=== PATIENT | male | born 1985 | race African-American/Black ===

== ENCOUNTER 2017-10-01 17:10 | Emergency (ER) | payer MEDICAID, OTHER ==
[~2017-10-01] VITALS: Ht 175.3 cm; Wt 136.1 kg
[2017-10-01 18:12] LABS: Basophils # (auto) 0 uL; Eosinophils # (auto) 0.1 uL; Lymphocytes # (auto) 0.4 uL; Monocytes # (auto) 0.6 uL
[2017-10-01 18:14] LABS: Basophils % (auto) 0.4 % (0.0-2.0); Eosinophils % (auto) 0.8 % (0.0-7.0); Hematocrit 36.1 % (41.0-53.0); Hemoglobin 11.6 g/dL (13.5-17.5); Lymphocytes % (auto) 5.3 % (10.0-50.0); Mean Corpuscular Hemoglobin 21.8 pg (28.0-32.0); Mean Corpuscular Hgb Conc. 32.2 g/dL (32.0-36.0); Mean Corpuscular Volume 67.7 fL (80.0-100.0); Monocytes % (auto) 7.6 % (0.0-12.0); Neutrophils # (auto) 6.7 uL; Neutrophils % (auto) 85.9 % (37.0-80.0); Nucleated Red Blood Cells % 0.3 %; Platelet Count (auto) 231 10^3/uL (140-450); Red Blood Cells 5.33 10^6/uL (4.5-5.90); White Blood Cell 7.8 10^3/uL (4.4-10.8)
[2017-10-01 18:33] LABS: Bilirubin, Total 0.4 mg/dL (0.2-1.0); Calcium 7.5 mg/dL (8.5-10.1); Potassium 3.4 mmol/L (3.5-5.1); Total Protein 6.3 g/dL (6.4-8.2)
[2017-10-01] MEDS ORDERED: LORazepam 2MG/ML-1ML VIAL ONE (20:08)
[2017-10-01] MEDS ORDERED: LEVETIRACETAM INJ 1,000 MG in D5W 5% 100 ML IV ONE (20:15)
[2017-10-01] MEDS ORDERED: LORazepam 2MG/ML-1ML VIAL IV ONE (20:15)
[2017-10-01] MEDS ORDERED: SODIUM CHLORIDE 0.9% 1,000 ML IV ONE (20:15)
[2017-10-01] MEDS ORDERED: LEVETIRACETAM INJ 1,000 MG in SODIUM CHL 0.9% 100 ML IV ONE (20:30)
[2017-10-01] MEDS ORDERED: HYDROcodone-ACET 5/325MG TAB PO ONE (21:30)
[2017-10-01 22:00] LABS: Alcohol, Urine < 3.0 mg/dL (0-5); Amphetamine Screen, Urine NEGATIVE (NEGATIVE); Barbiturate Scree,Urine NEGATIVE (NEGATIVE); Benzodiazephine Screen, Urine NEGATIVE (NEGATIVE); Cannabinoid Screen, Urine NEGATIVE (NEGATIVE); Cocaine Screen, Urine NEGATIVE (NEGATIVE); Opiate Scree,Urine NEGATIVE (NEGATIVE); Phencyclidine Screen, Urine NEGATIVE (NEGATIVE)
[2017-10-01] MEDS ORDERED: cloNIDine 0.2 mg/24hr 7DAY PATCH TD ONE (22:30)
[2017-10-01] MEDS ORDERED: cloNIDine HCL 0.1 MG TAB PO ONE (23:00)
[2017-10-02 00:03] VITALS: BP 184/127
[2017-10-02] MEDS ORDERED: LABETALOL HCL 200 MG TAB PO ONE (00:30)
[2017-10-02] MEDS ORDERED: LORazepam 0.5 MG TAB PO ONE (02:00)
== END 2017-10-02 02:10 | disposition home or self-care (01) ==
LOC: ER 17:10
DX: G40.909 Epilepsy, unspecified, not intractable, without status epilepticus (principal); E86.0 Dehydration; G89.29 Other chronic pain; M54.9 Dorsalgia, unspecified
CPT/HCPCS: 36415; 70450; 80053; 80307; 85025; 93005; 96365; 96375; 99285; J1953; J2060; J7030; J7060

== ENCOUNTER 2017-10-11 19:19 | Emergency (ER) | payer MEDICAID, OTHER ==
[~2017-10-11] VITALS: Ht 175.3 cm; Wt 117.9 kg
[2017-10-11 20:20] LABS: Mean Corpuscular Hemoglobin 21.4 pg (28.0-32.0); Red Blood Cells 5.07 10^6/uL (4.5-5.90)
[2017-10-11 20:22] LABS: Hematocrit 34.3 % (41.0-53.0); Hemoglobin 10.8 g/dL (13.5-17.5); Mean Corpuscular Hgb Conc. 31.6 g/dL (32.0-36.0); Mean Corpuscular Volume 67.6 fL (80.0-100.0); Platelet Count (auto) 601 10^3/uL (140-450); White Blood Cell 14.5 10^3/uL (4.4-10.8)
[2017-10-11 20:43] LABS: Band Neutrophils % (manual) 0; Basophils % (manual) 0 (0.0-2.0); Blast Cells 0; Eosinophils % (manual) 0 (0-7); Metamyelocytes % 0; Myelocytes % 0; Promyelocytes % 0; Reactive Lymphocytes 0
[2017-10-11 20:52] LABS: Albumin 3.1 g/dL (3.4-5.0); BUN/Creatinine Ratio 27.7; Bilirubin, Total 0.4 mg/dL (0.2-1.0); Calcium 8.3 mg/dL (8.5-10.1); Total Protein 7.4 g/dL (6.4-8.2)
[2017-10-11 21:04] LABS: Lymphocytes % (manual) 8 (10.0-50.0); Monocytes % (manual) 2 (0-12)
[2017-10-11 21:59] LABS: Potassium 5.6 mmol/L (3.5-5.1)
[2017-10-11] MEDS ORDERED: FUROSEMIDE 20 MG/2 ML VIAL IV ONE (23:15)
[2017-10-11] MEDS ORDERED: SODIUM POLYSTYRENE SULF 15GM/60ML SUSP PO ONE (23:30)
[2017-10-12 00:32] LABS: Partial Thromboplastin Time 24.5 sec (22.64-33.71); Prothrombin Time 10.9 sec (9.37-12.3)
[2017-10-12 02:26] VITALS: BP 134/54
== END 2017-10-12 03:26 | disposition home or self-care (01) ==
LOC: ER 19:19
DX: M32.14 Glomerular disease in systemic lupus erythematosus (principal); R60.9 Edema, unspecified; I50.9 Heart failure, unspecified; N18.6 End stage renal disease; E87.5 Hyperkalemia; M10.9 Gout, unspecified; Z88.8 Allergy status to other drugs, medicaments and biological substances
CPT/HCPCS: 36415; 71045; 80053; 83880; 84484; 85007; 85027; 85379; 85610; 85730; 93005; 96374; 99285; J1940

== ENCOUNTER 2019-01-14 23:36 | Emergency (ER) | payer MEDICAID ==
[~2019-01-14] VITALS: Ht 180.3 cm; Wt 122.5 kg
[~2019-01-14 23:36] MED LIST: ALL300T PO; CIPR-173 PO; DICL1GEL26 TD; FURO40TA4 PO; HYDR-4441 PO; HYDR50TA15 PO; LAB200T PO; LEVE500T22 PO; MYCO500T PO; PRE1T PO; TRAM50TA2 PO
[2019-01-15 01:01] LABS: Basophils # (auto) 0.1 uL; Eosinophils # (auto) 0 uL; Eosinophils % (auto) 0.3 % (0.0-7.0); Monocytes # (auto) 1.5 uL
[2019-01-15 01:03] LABS: Basophils % (auto) 0.6 % (0.0-2.0); Hemoglobin 13.7 g/dL (13.5-17.5); Lymphocytes # (auto) 0.8 uL; Mean Corpuscular Hgb Conc. 31.8 g/dL (32.0-36.0); Mean Corpuscular Volume 75.5 fL (80.0-100.0); Monocytes % (auto) 10.9 % (0.0-12.0); Neutrophils # (auto) 11.3 uL; Neutrophils % (auto) 82.2 % (37.0-80.0); Nucleated Red Blood Cells % 0.1 %; Platelet Count (auto) 337 10^3/uL (140-450); Red Cell Distribution Width 13.4 % (11.8-14.3); White Blood Cell 13.7 10^3/uL (4.4-10.8)
[2019-01-15 01:13] LABS: Alanine Aminotransferase 27 U/L (16-61); Albumin 3.3 g/dL (3.4-5.0); Anion Gap 11 (5-15); Aspartate Aminotransferase 22 U/L (15-37); Blood Urea Nitrogen 11 mg/dL (7-18); Calcium 9.7 mg/dL (8.5-10.1); Carbon Dioxide 25 mmol/L (21-32); Chloride 103 mmol/L (98-107); GFR African American 100 mL/min; GFR Non-African American 82 mL/min; Glucose 94 mg/dL (74-106); Potassium 3.4 mmol/L (3.5-5.1); Sodium 139 mmol/L (136-145)
[2019-01-15 01:20] LABS: Alkaline Phosphatase 140 U/L (45-117); Bilirubin, Total 0.9 mg/dL (0.2-1.0); Total Protein 7.8 g/dL (6.4-8.2)
[2019-01-15] MEDS ORDERED: SODIUM CHLORIDE 0.9% 500 ML IV ONE (02:30)
[2019-01-15] MEDS ORDERED: ONDANSETRON HCL 4 MG/2 ML VIAL IV ONE (02:30)
[2019-01-15] MEDS ORDERED: MORPHINE SULFATE 4 MG/ML SYR/VIAL IV ONE (02:30)
[2019-01-15] MEDS ORDERED: methylPREDNISolone SOD SUCC 125 MG/2 ML VL IV ONE (07:30)
[2019-01-15] MEDS ORDERED: metroNIDAZOLE 500MG/100ML 100 ML IV ONE (08:15)
[2019-01-15 10:28] VITALS: BP 143/89
== END 2019-01-15 10:39 | disposition short-term general hospital (02) ==
LOC: ER 23:36 → EDBD 23:36 → ER 01-15 10:39
DX: R18.8 Other ascites (principal); I31.3 Pericardial effusion (noninflammatory); K52.9 Noninfective gastroenteritis and colitis, unspecified; I10 Essential (primary) hypertension; M10.9 Gout, unspecified; Z90.89 Acquired absence of other organs; Z88.8 Allergy status to other drugs, medicaments and biological substances
CPT/HCPCS: 36415; 71045; 74176; 80053; 83690; 84484; 85025; 93005; 94761; 96361; 96365; 96366; 96375; 99285; J2270; J2405; J2930; J3490; J7030

== ENCOUNTER 2019-08-19 11:53 | Emergency (ER) | payer MEDICAID ==
[~2019-08-19] VITALS: Ht 180.3 cm; Wt 127.0 kg
[~2019-08-19 11:53] MED LIST changes: -ALL300T PO; +ALLO300T2 PO; +CALC600T25 PO; -CIPR-173 PO; -FURO40TA4 PO; +HYDR-4188 PO; -HYDR-4441 PO; +LISI10TA6 PO; -TRAM50TA2 PO
[2019-08-19] MEDS ORDERED: ASPirin 81 mg TAB PO ONE (12:45)
[2019-08-19 14:12] LABS: Eosinophils # (auto) 0 uL; Mean Corpuscular Volume 74.4 fL (80.0-100.0); Monocytes # (auto) 1.1 uL; Neutrophils # (auto) 11.7 uL
[2019-08-19 14:13] LABS: Basophils # (auto) 0.1 uL; Basophils % (auto) 0.7 % (0.0-2.0); Eosinophils % (auto) 0.2 % (0.0-7.0); Hematocrit 43.5 % (41.0-53.0); Hemoglobin 14.2 g/dL (13.5-17.5); Lymphocytes # (auto) 0.6 uL; Lymphocytes % (auto) 4.4 % (10.0-50.0); Mean Corpuscular Hemoglobin 24.2 pg (28.0-32.0); Mean Corpuscular Hgb Conc. 32.6 g/dL (32.0-36.0); Monocytes % (auto) 7.9 % (0.0-12.0); Neutrophils % (auto) 86.8 % (37.0-80.0); Platelet Count (auto) 223 10^3/uL (140-450); Red Blood Cells 5.85 10^6/uL (4.5-5.90); White Blood Cell 13.5 10^3/uL (4.4-10.8)
[2019-08-19 14:29] LABS: INR 1.06 (0.9-1.15); Partial Thromboplastin Time 29.8 sec (23.64-32.05)
[2019-08-19 14:43] LABS: Albumin 3.7 g/dL (3.4-5.0); Anion Gap 8 (5-15); Blood Urea Nitrogen 14 mg/dL (7-18); Calcium 9.2 mg/dL (8.5-10.1); Carbon Dioxide 26 mmol/L (21-32); Chloride 105 mmol/L (98-107); Glucose 97 mg/dL (74-106); Magnesium 1.9 mg/dL (1.6-2.6); Potassium 4.2 mmol/L (3.5-5.1); Sodium 139 mmol/L (136-145)
[2019-08-19 14:45] LABS: Alanine Aminotransferase 16 U/L (16-61); Aspartate Aminotransferase 12 U/L (15-37); BUN/Creatinine Ratio 11.4; GFR African American 87 mL/min; GFR Non-African American 72 mL/min
[2019-08-19 14:50] LABS: Alkaline Phosphatase 82 U/L (45-117); Bilirubin, Total 0.9 mg/dL (0.2-1.0)
[2019-08-19 15:28] VITALS: BP 122/79
== END 2019-08-19 15:39 | disposition home or self-care (01) ==
LOC: ER 11:58
DX: M32.9 Systemic lupus erythematosus, unspecified (principal); J40 Bronchitis, not specified as acute or chronic; D72.829 Elevated white blood cell count, unspecified; I10 Essential (primary) hypertension; Z88.8 Allergy status to other drugs, medicaments and biological substances; Z79.899 Other long term (current) drug therapy
CPT/HCPCS: 36415; 71046; 80053; 83735; 83880; 84484; 85025; 85610; 85730; 93005